=== PATIENT | female | born 1975 | race Caucasian/White ===

== ENCOUNTER 2020-06-12 17:50 | Emergency (ER) | payer BC ==
[~2020-06-12] VITALS: Ht 160 cm; Wt 77.3 kg
[2020-06-12 18:09] VITALS: BP 132/65
[2020-06-12] MEDS ORDERED: MORPHINE SULFATE 4 MG/ML DISP.SYRIN. IV ONE (18:30)
[2020-06-12] MEDS ORDERED: KETOROLAC 30 MG/ML VIAL. IVP ONE (18:30)
[2020-06-12] MEDS ORDERED: PROCHLORPERAZINE 10 MG/2 ML VIAL. IV ONE (18:30)
[2020-06-12 18:39] LABS: BILIRUBIN,URINE NEG (NEG); CLARITY,URINE CLEAR; COLOR,URINE YELLOW; GLUCOSE,URINE NEG (NEG); NITRITE,URINE NEG (NEG); UROBILINOGEN,URINE 0.2 mg/dL (0.2 mg/dL)
[2020-06-12 18:40] LABS: BACTERIA,URINE FEW /HPF (0-FEW); SQUAMOUS EPITHELIAL CELL,UR FEW /LPF; WBC,URINE RARE /HPF (0-4)
--- NOTE | 2020-06-12 18:45 | RAD ---
EXAM: Abdomen and pelvis CT without intravenous contrast. HISTORY: Left flank pain. TECHNIQUE: Computed tomographic images of the abdomen and pelvis were obtained without contrast. Mult iplanar reformatting was performed. *One or more of the following individualized dose reduction techniques were utilized for this examina tion: 1. Automated exposure control. 2. Adjustment of the mA and/or kV according to patient size. 3. Use of iterative reconstruction technique. COMPARISON: 09/06/2018. FINDINGS: Evaluation of the lower thorax demonstrates a calcified granuloma within the lateral left l ower lobe. There is no infiltrate or suspicious pulmonary nodule. There is no suspicious hepatic lesi ons on this noncontrast exam. The gallbladder is absent. There is common bile duct dilatation likely due to reservoir effect status post cholecystomy. The pancreas, spleen and adrenal glands are unremar kable. There is no evidence of hydronephrosis. There are multiple nonobstructing bilateral renal stones, the largest of which measure 6 mm bilaterally. No ureteral stone is seen. No solid or cystic renal lesio n is seen. There is no appendicitis. There is no bowel obstruction. There is no abnormal bowel wall thickening. There is distal colonic diverticulosis. There is no diverticulitis. The bladder is nearly empty. The uterus is unremarkable. There are bilateral fallopian tube closure devices within the pelvis. The aor ta is normal in caliber. There is no lymphadenopathy. There is a small fat-containing umbilical herni a. There is no suspicious osseous lesion. IMPRESSION: 1. Bilateral nephrolithiasis. There is no evidence of an obstructing renal or ureteral stone. 2. Distal colonic diverticulosis. 3. Biliary ductal dilatation, likely due to reservoir effect status post cholecystectomy. 4. Small fat-containing umbilical hernia. Electronically signed by: Harika Pat MD (06/12/2020 6:42 PM) [facility]
[2020-06-12 18:51] LABS: BASO % 0 % (0-3); EOS # 0.1 x10^3/uL (0.0-0.7); EOS % 1 % (0-3); HEMATOCRIT 34.4 % (36.0-47.0); HEMOGLOBIN 10.1 g/dL (12.0-15.5); LYMPH # 1.2 x10^3/uL (1.0-4.8); LYMPH % 11 % (24-48); MEAN CORPUSCULAR HEMOGLOBIN 20 pg (25-35); MEAN CORPUSCULAR HGB CONC 29 g/dL (31-37); MEAN CORPUSCULAR VOLUME 68 fL (79-100); MONO # 0.6 x10^3/uL (0.0-1.1); MONO % 5 % (0-9); NEUT # 9.5 x10^3uL (1.8-7.7); NEUT % 84 % (31-73); PLATELET COUNT 288 x10^3/uL (140-400); RED BLOOD COUNT 5.05 x10^6/uL (3.50-5.40); RED CELL DISTRIBUTION WIDTH 20.7 % (11.5-14.5); WHITE BLOOD COUNT 11.3 x10^3/uL (4.0-11.0)
--- NOTE | 2020-06-12 18:58 | PHYS DOC ---
Past History Past Medical History: Other Additional Past Medical Histor: kidney stones (VERÓNICA MACK APRN) Past Surgical History: Cholecystectomy (VERÓNICA MACK APRN) Alcohol Use: None (VERÓNICA MACK APRN) Adult General Chief Complaint Chief Complaint: FLANK PAIN [facility] HPI Patient is a 44-year-old female patient presenting to the ED today complaining of 10 out of 10 left flank pain that began on Saturday which is 3 days ago. Patient states the pain radiates to her abdomen. She states she has history of kidney stones and passed a kidney stone on Saturday and since then she has had this pain. She is also complaining of nausea and vomiting. Denies any fever. Denies any chance she is . She states she tried taking her hydrocodone and oxycodone with no relief. (VERÓNICA MACK APRN) Review of Systems Review of Systems Constitutional: Denies fever or chills [] Eyes: Denies change in visual acuity, redness, or eye pain [] HENT: Denies nasal congestion or sore throat [] Respiratory: Denies cough or shortness of breath [] Cardiovascular: No additional information not addressed in HPI [] GI: Reports nausea and vomiting, reports pain radiating to the abdomen, denies bloody stools or diarrhea [] : Reports left flank pain. Denies dysuria or hematuria [] Musculoskeletal: Denies back pain or joint pain [] Integument: Denies rash or skin lesions [] Neurologic: Denies headache, focal weakness or sensory changes [] All other systems were reviewed and found to be within normal limits, except as documented in this note. (VERÓNICA MACK APRN) Current Medications Current Medications Current Medications Medications (Trade) Dose Ordered Sig/Jj Start Time Stop Time Status Last Admin Dose Admin Ketorolac Tromethamine (Toradol 30mg Vial) 30 mg 1X ONCE 06/12/20 18:30 06/12/20 18:31 DC 06/12/20 18:38 30 MG Morphine Sulfate (Morphine 4mg Syringe) 4 mg 1X ONCE 06/12/20 18:30 06/12/20 18:31 DC 06/12/20 18:38 4 MG Prochlorperazine Edisylate (Compazine) 10 mg 1X ONCE 06/12/20 18:30 06/12/20 18:31 DC 06/12/20 18:38 10 MG (VERÓNICA MACK VINOD) Allergies Allergies Allergies Coded Allergies Type Severity Reaction Last Updated Verified No Known Drug Allergies 06/12/20 No (VERÓNICA MACK APRN) Physical Exam Physical Exam Constitutional: Well developed, well nourished, no acute distress, non-toxic appearance. [] HENT: Normocephalic, atraumatic, bilateral external ears normal, oropharynx moist, no oral exudates, nose normal. [] Eyes: PERRLA, EOMI, conjunctiva normal, no discharge. [] Neck: Normal range of motion, no tenderness, supple, no stridor. [] Cardiovascular:Heart rate regular rhythm, no murmur [] Lungs & Thorax: Bilateral breath sounds clear to auscultation [] Abdomen: Bowel sounds normal, soft, no tenderness, no masses, no pulsatile masses. [] Skin: Warm, dry, no erythema, no rash. [] Back: No tenderness, mild left CVA tenderness. [] Extremities: No tenderness, no cyanosis, no clubbing, ROM intact, no edema. [] Neurologic: Alert and oriented X 3, normal motor function, normal sensory function, no focal deficits noted. [] Psychologic: Flat affect. (VERÓNICA MACK [employer]) Current Patient Data Vital Signs Vital Signs Date Time Temp Pulse Resp B/P (MAP) Pulse Ox O2 Delivery O2 Flow Rate FiO2 06/12/20 18:09 98.2 85 18 132/65 (87) 99 Lab Results Laboratory Tests Test 06/12/20 18:21 06/12/20 18:31 Urine Collection Type Unknown Urine Color Yellow Urine Clarity Clear Urine pH 7.5 Urine Specific [place] 1.020 Urine Protein 30 mg/dl (NEG-TRACE) Urine Glucose (UA) Neg mg/dL (NEG) Urine Ketones (Stick) Neg mg/dL (NEG) Urine Blood Trace (NEG) Urine Nitrite Neg (NEG) Urine Bilirubin Neg (NEG) Urine Urobilinogen Dipstick 0.2 mg/dL (0.2 mg/dL) Urine Leukocyte Esterase Neg (NEG) Urine RBC 3-5 /HPF (0-2) Urine WBC Rare /HPF (0-4) Urine Squamous Epithelial Cells Few /LPF Urine Bacteria Few /HPF (0-FEW) POC Urine HCG, Qualitative hcg negative (Negative) (VERÓNICA MACK APRN) EKG EKG [] (VERÓNICA MACK APRN) Radiology/Procedures Radiology/Procedures []PROCEDURE: CT ABDOMEN PELVIS WO CONTRAST EXAM: Abdomen and pelvis CT without intravenous contrast. HISTORY: Left flank pain. TECHNIQUE: Computed tomographic images of the abdomen and pelvis were obtained without contrast. Multiplanar reformatting was performed. *One or more of the following individualized dose reduction techniques were utilized for this examination: 1. Automated exposure control. 2. Adjustment of the mA and/or kV according to patient size. 3. Use of iterative reconstruction technique. COMPARISON: 09/06/2018. FINDINGS: Evaluation of the lower thorax demonstrates a calcified granuloma within the lateral left lower lobe. There is no infiltrate or suspicious pulmonary nodule. There is no suspicious hepatic lesions on this noncontrast exam. The gallbladder is absent. There is common bile duct dilatation likely due to reservoir effect status post cholecystomy. The pancreas, spleen and adrenal glands are unremarkable. There is no evidence of hydronephrosis. There are multiple nonobstructing bilateral renal stones, the largest of which measure 6 mm bilaterally. No ureteral stone is seen. No solid or cystic renal lesion is seen. There is no appendicitis. There is no bowel obstruction. There is no abnormal bowel wall thickening. There is distal colonic diverticulosis. There is no diverticulitis. The bladder is nearly empty. The uterus is unremarkable. There are bilateral fallopian tube closure devices within the pelvis. The aorta is normal in caliber. There is no lymphadenopathy. There is a small fat-containing umbilical hernia. There is no suspicious osseous lesion. IMPRESSION: 1. Bilateral nephrolithiasis. There is no evidence of an obstructing renal or ureteral stone. 2. Distal colonic diverticulosis. 3. Biliary ductal dilatation, likely due to reservoir effect status post cholecystectomy. 4. Small fat-containing umbilical hernia. Electronically signed by: Harika Kwon MD (06/12/2020 6:42 PM) [facility] DICTATED AND SIGNED BY: HARIKA KWON MD DATE: 06/12/20 1839 CC: VERÓNICA MACK APRN; SWARTZ,VAN T DO ~MTH0 0 (VERÓNICA MACK APRN) Heart Score Risk Factors: Risk Factors: DM, Current or recent (<one month) smoker, HTN, HLP, family history of CAD, obesity. Risk Scores: Risk Factors: DM, Current or recent (<one month) smoker, HTN, HLP, family history of CAD, obesity. (VERÓNICA MACK APRN) Course & Med Decision Making Course & Med Decision Making Pertinent Labs and Imaging studies reviewed. (See chart for details) This is a 44-year-old female patient presenting to the ED today complaining of left flank pain, symptoms began on Saturday after she passed a kidney stone. She states she has history of chronic kidney stones. She is on hydrocodone for this. She also reports taking codeine and hydrocodone prior to coming to the ED with no relief. UA negative for infection. CT of the abdomen and pelvic was noted for bilateral nephrolithiasis otherwise no obstructing stone. CBC with a WBC of 11.1, CMP with no acute findings. Discharge home. Follow-up with her own PCP. (VERÓNICA MACK APRN) Dragon Disclaimer Dragon Disclaimer This electronic medical record was generated, in whole or in part, using a voice recognition dictation system. (VERÓNICA MACK APRN) Departure Departure: Impression: Primary Impression: Bilateral nephrolithiasis Additional Impression: Left flank pain Disposition: DC HOME SELF CARE/HOMELESS Condition: STABLE Referrals: HOA SWARTZ DO (PCP) follow up in 1 week Patient Instructions: Flank Pain, [id number] Additional Instructions: You were seen for flank pain. Your work-up in the emergency room was negative for any acute findings. You do not have any obstructing kidney stones. Follow- up with your doctor in 1 to 2 weeks. Attending Signature Attending Signature I have participated in the care of this patient and I have reviewed and agree with all pertinent clinical information above including history, exam, and recommendations. (YUKO ALAS MD) Attending Signature Attending Signature I have participated in the care of this patient and I have reviewed and agree with all pertinent clinical information above including history, exam, and recommendations. (YUKO ALAS MD) Problem Qualifiers VERÓNICA MACK APRN Jun 12, 2020 18:57 YUKO ALAS MD Jun 15, 2020 18:56
[2020-06-12 19:20] LABS: CREATININE 0.8 mg/dL (0.6-1.0); GFR 77.9; HYPOCHROMIA MARKED; PLT ESTIMATE ADEQUATE (ADEQUATE); POTASSIUM 3.9 mmol/L (3.5-5.1)
[2020-06-12 19:21] LABS: ANISOCYTOSIS MOD; MICROCYTOSIS MARKED
[2020-06-12 19:26] LABS: ALBUMIN 3.6 g/dL (3.4-5.0); ALBUMIN/GLOBULIN RATIO 0.8 (1.0-1.7); TOTAL BILIRUBIN 0.1 mg/dL (0.2-1.0); TOTAL PROTEIN 8.3 g/dL (6.4-8.2)
[2020-06-12 19:44] LABS: BARBITURATES NEG (NEG); BENZODIAZEPINES POS (NEG); CANNABINOIDS NEG (NEG); COCAINE NEG (NEG); METHADONE NEG (NEG); OPIATES POS (NEG); PHENCYCLIDINE NEG (NEG)
[2020-06-12 19:45] LABS: AMPHETAMINE/METHAMPHETAMINE NEG (NEG)
== END 2020-06-12 19:50 | disposition home or self-care (01) ==
LOC: ER 17:50
DX: N20.0 Calculus of kidney (principal); R10.9 Unspecified abdominal pain; R11.2 Nausea with vomiting, unspecified; Z90.49 Acquired absence of other specified parts of digestive tract; Z87.442 Personal history of urinary calculi
CPT/HCPCS: 36415; 74176; 80053; 80307; 81001; 81025; 83690; 85025; 96374; 96375; 99284; G0480; J0780; J1885; J2270